=== PATIENT | female | born 1955 | race Caucasian/White ===

== ENCOUNTER 2016-08-17 20:33 | Emergency (ER) | payer OTHER ==
[2016-08-17 20:45] VITALS: BP 143/77; PULSE 55; TEMP 98; BMI 26.7
--- NOTE | 2016-08-17 21:08 | PDOC ---
History of Present Illness - General History Source: Patient Exam Limitations: No Limitations - History of Present Illness Initial Comments: 08/17/16 21:09 The patient is a 61 year old female, with a significant past medical history of HTN, HLD, hiatal hernia, GERD, anxiety and migraine, who presents to the emergency department with right ankle pain after a fall today. She states that she was walking down the stairs when she missed a step and hurt her ankle when the foot inverted. She describes her ankle pain as mild, without radiation or modifying factors. The patient was able to ambulate into the ED. She denies taking anything for the pain. The patient denies chest pain, shortness of breath, headache and dizziness. Allergies: None Past surgical history: None reported Social history: No alcohol, tobacco or drug use reported <Michael Olsen - Last Filed: 08/17/16 21:37> - General History Source: Patient Exam Limitations: No Limitations <Susan Centeno - Last Filed: 08/17/16 21:42> - General Chief Complaint: Injury Stated Complaint: right ankle injury s/p fall Time Seen by Provider: 08/17/16 20:36 Past History <Michael Olsen - Last Filed: 08/17/16 21:37> - Past Medical History GI Disorders: Yes (GERD, HIATAL HERNIA,diverticulitis) HTN: Yes Hypercholesterolemia: Yes Psychiatric Problems: Yes (anxiety) - Surgical History Abdominal Surgery: Yes (bowel resection s/p diverticulitis) - Immunization History TDAP Vaccination: Yes (2012) - Psycho/Social/Smoking Cessation Hx Anxiety: Yes Suicidal Ideation: No Smoking Status: No Smoking History: Never smoked Have you smoked in the past 12 months: No Number of Cigarettes Smoked Daily: 0 Information on smoking cessation initiated: No Hx Alcohol Use: No Drug/Substance Use Hx: No Substance Use Type: None <Susan Centeno - Last Filed: 08/17/16 21:42> - Past Medical History Allergies/Adverse Reactions: Allergies Allergy/AdvReac Type Severity Reaction Status Date / Time propoxyphene HCl AdvReac Difficulty Verified 08/17/16 20:35 [From Darvon] Breathing Home Medications: Ambulatory Orders Alprazolam [Xanax] 0.25 mg PO BID 01/11/12 Aspirin [ASA -] 81 mg PO HS 01/11/12 Gemfibrozil [Lopid -] 600 mg PO DAILY 01/11/12 Lansoprazole [Prevacid -] 30 mg PO DAILY 01/11/12 Lutein 6 mg PO DAILY 01/11/12 Propranolol HCl [Inderal -] 40 mg PO BID 01/11/12 Simvastatin [Zocor] 20 mg PO HS 01/11/12 Dapsone [Aczone] 60 gm TP BID 01/25/14 Estradiol [Vagifem] 10 mcg VG UTDICT 01/25/14 Lisinopril [Zestril] 2.5 mg PO DAILY 01/25/14 Naftifine HCl [Naftin] 60 gm TP UTDICT 01/25/14 Multivitamin [Poly-Vitamin] 1 each PO DAILY 08/17/16 Review of Systems - Review of Systems Able to Perform ROS?: Yes Comments:: 08/17/16 21:09 GENERAL/CONSTITUTIONAL: No: fever, chills, weakness, loss of appetite. HEAD, EYES, EARS, NOSE AND THROAT: No: change in vision, ear pain, discharge, sore throat, throat swelling. MUSCULOSKELET AL: No: back pain, neck pain, joint pain, muscle swelling or pain EXTREMITIES: +Right ankle pain. SKIN AND BREASTS: No: lesions, pallor, rash or easy bruising. NEUROLOGIC: No: headache, vertigo, paresthesias, weakness <Michael Olesn - Last Filed: 08/17/16 21:37> *Physical Exam - Vital Signs Last Vital Signs Temp Pulse Resp BP Pulse Ox 98 F 55 L 18 143/77 98 08/17/16 20:41 08/17/16 20:41 08/17/16 20:41 08/17/16 20:41 08/17/16 20:41 - Physical Exam Comments: 08/17/16 21:09 GENERAL: The patient is in no acute distress. HEAD: Normal with no signs of trauma. EXTREMITIES: Normal range of motion, no edema. No clubbing or cyanosis. No erythema, or tenderness, bruising or swelling. NEUROLOGICAL: Cranial nerves II through XII grossly intact. Normal speech. No focal neurological deficits. MUSCULOSKELETAL: Back non-tender to palpation, no CVA tenderness SKIN: Warm, Dry, normal turgor, no rashes or lesions noted. <Michael Olsen - Last Filed: 08/17/16 21:37> - Vital Signs Last Vital Signs Temp Pulse Resp BP Pulse Ox 98 F 55 L 18 143/77 98 08/17/16 20:41 08/17/16 20:41 08/17/16 20:41 08/17/16 20:41 08/17/16 20:41 <Susan Centeno - Last Filed: 08/17/16 21:42> ED Treatment Course - RADIOLOGY Radiograph Interpretation: 08/17/16 21:37 Right ankle x-ray Reviewed by: Dr. Trever Anderson Impression: No evidence of acute fracture or dislocation in the region of right ankle and right foot. <Michael Olsen - Last Filed: 08/17/16 21:37> Medical Decision Making - Medical Decision Making 08/17/16 21:08 A portion of this note was documented by scribe services under my direction. I have reviewed the details of the note, within reason, and agree with the documentation with the following case summary and management plan written by me. Nursing documentation reviewed and incorporated into medical decision making 08/17/16 21:38 This is a 61 yo F presenting to the ER with a complaint of right ankle pain PT states she tripped over a stair and inverted her ankle No additional trauma Pain has been all over the right leg No point tenderness on examination No swelling No bruising Pt has not taken any motrin or tylenol for pain DD: Ankle fracture, sprain Will do x ray pt refused pain medications Xray: no fracture or dislocation Will discharge to home Can katlyn wrap <Susan Centeno - Last Filed: 08/17/16 21:42> *DC/Admit/Observation/Transfer - Attestations Scribe Attestion: 08/17/16 21:10 Documentation prepared by Michael Olsen, acting as medical office clerk for Susan Centeno MD <Michael Olsen - Last Filed: 08/17/16 21:37> - Discharge Dispostion Admit: No <Susan Centeno - Last Filed: 08/17/16 21:42> Diagnosis at time of Disposition: Ankle pain, right Qualifiers: Chronicity: acute Qualified Code(s): M25.571 - Pain in right ankle and joints of right foot - Discharge Dispostion Disposition: HOME Condition at time of disposition: Stable - Patient Instructions Printed Discharge Instructions: DI for Ankle Pain Additional Instructions: Please apply ice as needed Please elevate Please wrap with an katlyn bandage Please return to the ER for any other concerns or complaints Please follow up with your primary care physician
== END 2016-08-17 21:57 | disposition home or self-care (01) ==
LOC: FER 20:33
DX: M25.571 Pain in right ankle and joints of right foot (principal); I10 Essential (primary) hypertension; E78.5 Hyperlipidemia, unspecified; K21.9 Gastro-esophageal reflux disease without esophagitis; F41.9 Anxiety disorder, unspecified; Z86.69 Personal history of other diseases of the nervous system and sense organs
CPT/HCPCS: 73610-TC-RT; 73630-TC-RT; 99281-25

== ENCOUNTER 2017-08-11 20:06 | Emergency (ER) | payer OTHER ==
[2017-08-11 20:25] VITALS: BP 157/80; PULSE 63; TEMP 99; BMI 27.1
--- NOTE | 2017-08-11 21:11 | PDOC ---
History of Present Illness - General History Source: Patient, Spouse Exam Limitations: No Limitations - History of Present Illness Initial Comments: The patient is a 62 year old female, accompanied with her , with a significant PMH of HTN, HLD, GERD, dry eye, Rosacea, and migraine headaches who presents to the emergency department complaining of right hand 4th finger swelling/bruising without trauma, since 6:30pm today. The patient reports standing in the kitchen and noticing her right hand 4th finger turning blue in color. The patient reports not being able to flex her finger, but denies any pain. She denies any other bruising and bleeding in mouth. Of note, she had her tooth extracted 10 days ago and finished a prescription of Zithromax. The patient also reports completing a course of ciprofloxacin several weeks ago. The patient reports a history of nerve issues throughout the right arm. The patient denies chest pain, shortness of breath, headache, and dizziness. Denies fevers, chills, nausea, vomiting, diarrhea, and constipation. Denies dysuria, frequency, urgency, and hematuria. Allergies: Adhesive (band-aid) Past surgical history: Breast reduction, , laparascopic removal of dermoid ovarian cyst (1994), abdominal hysterectomy (2005), colon resection for diverticular disease (2015). Social history: No reported cigarette, alcohol, or drug use. PCP: Dr. Edwardo Guajardo ([phone]). <Kayy Freed - Last Filed: 08/11/17 22:10> <Nina Falcon - Last Filed: 08/12/17 02:45> - General Chief Complaint: Pain Stated Complaint: RH 4TH FINGER SWELLING/BRUISING Time Seen by Provider: 08/11/17 20:14 Past History <Kayy Freed - Last Filed: 08/11/17 22:10> - Past Medical History COPD: No GI Disorders: Yes (GERD, HIATAL HERNIA,diverticulitis) HTN: Yes Hypercholesterolemia: Yes Psychiatric Problems: Yes (anxiety) Other medical history: DRY EYE, ROSACEA - Surgical History Abdominal Surgery: Yes (bowel resection s/p diverticulitis) - Immunization History TDAP Vaccination: Yes (2012) - Suicide/Smoking/Psychosocial Hx Smoking Status: No Smoking History: Never smoked Have you smoked in the past 12 months: No Number of Cigarettes Smoked Daily: 0 Hx Alcohol Use: No Drug/Substance Use Hx: No Substance Use Type: None <Nina Falcon - Last Filed: 08/12/17 02:45> - Past Medical History Allergies/Adverse Reactions: Allergies Allergy/AdvReac Type Severity Reaction Status Date / Time adhesive Allergy Verified 08/11/17 20:09 propoxyphene HCl AdvReac Difficulty Verified 08/17/16 20:35 [From Darvon] Breathing Home Medications: Ambulatory Orders Alprazolam [Xanax] 0.25 mg PO BID 01/11/12 Aspirin [ASA -] 81 mg PO HS 01/11/12 Gemfibrozil [Lopid -] 600 mg PO DAILY 01/11/12 Lansoprazole [Prevacid -] 30 mg PO DAILY 01/11/12 Lutein 6 mg PO DAILY 01/11/12 Simvastatin [Zocor] 20 mg PO HS 01/11/12 propRANOLol HCL [Inderal -] 40 mg PO BID 01/11/12 Dapsone [Aczone] 60 gm TP BID 01/25/14 Estradiol [Vagifem] 10 mcg VG UTDICT 01/25/14 Lisinopril [Zestril] 2.5 mg PO DAILY 01/25/14 Naftifine HCl [Naftin] 60 gm TP UTDICT 01/25/14 Multivitamin [Poly-Vitamin] 1 each PO DAILY 08/17/16 Lactobacillus Rhamnosus GG [Culturelle] 1 each PO BID 08/11/17 Sennosides/Docusate Sodium [Stool Softener-Laxative Tablet] 1 each PO WEEKLY 04/18 Review of Systems - Review of Systems Able to Perform ROS?: Yes Comments:: All systems are reviewed and negative except as noted in the HPI. <Kayy Freed - Last Filed: 08/11/17 22:10> *Physical Exam - Vital Signs Last Vital Signs Temp Pulse Resp BP Pulse Ox 99 F 63 16 157/80 99 08/11/17 20:20 08/11/17 20:20 08/11/17 20:20 08/11/17 20:20 08/11/17 20:20 - Physical Exam Comments: GENERAL: The patient is awake, alert, and fully oriented, in no acute distress. HEAD: Normal with no signs of trauma. EYES: Pupils equal, round and reactive to light, extraocular movements intact, sclera anicteric, conjunctiva clear. ENT: Ears normal, nares patent, oropharynx clear without exudates. Moist mucous membranes. NECK: Normal range of motion, supple without lymphadenopathy, JVD, or masses. LUNGS: Breath sounds equal, clear to auscultation bilaterally. No wheezes, and no crackles. HEART: Regular rate and rhythm, normal S1 and S2 without murmur, rub or gallop. ABDOMEN: Soft, nontender, normoactive bowel sounds. No guarding, no rebound. No masses. EXTREMITIES:(+)Palmar aspect of proximal and middle phalanx of right 4th finger. (+)Edematous and Ecchymotic without deformity. Non tender. (+)Palmar distal phalanx, non edematous, with good capillary refill. Finger warm. Sensory and motor function intact. Remainder of hand normal without edema, ecchymosis or deformity. speech, normal gait. PSYCH: Normal mood, normal affect. SKIN: Warm, Dry, normal turgor, no rashes or lesions noted. <Kayy Freed - Last Filed: 08/11/17 22:10> - Vital Signs Last Vital Signs Temp Pulse Resp BP Pulse Ox 99 F 63 16 157/80 99 08/11/17 20:20 08/11/17 20:20 08/11/17 20:20 08/11/17 20:20 08/11/17 20:20 <Nina Falcon - Last Filed: 08/12/17 02:45> ED Treatment Course - LABORATORY CBC & Chemistry Diagram: 08/11/17 21:40 08/11/17 21:40 - ADDITIONAL ORDERS Additional order review: Laboratory Results 08/11/17 21:40 PT with INR 12.1 INR 1.08 08/11/17 21:40 RBC 4.91 MCV 85.1 MCHC 35.6 RDW 12.9 MPV 7.0 L Neutrophils % 60.8 Lymphocytes % 32.4 Monocytes % 4.2 Eosinophils % 1.9 Basophils % 0.7 <Kayy Freed - Last Filed: 08/11/17 22:10> - LABORATORY CBC & Chemistry Diagram: 08/11/17 21:40 08/11/17 21:40 <Nina Falcon - Last Filed: 08/12/17 02:45> Medical Decision Making - Medical Decision Making Documentation has been prepared under my direction and personally reviewed by me in its entirety. I attest that this documented accurately reflects all work, treatment, procedures and medical decision making performed by me. As noted above, this 62-year-old woman presents with apparent sudden onset of edema/ecchymosis of the right fourth finger this evening. Ecchymosis is contained to the palmar aspect of the proximal finger (distal phalanx is not ecchymotic). Patient cannot recall any specific trauma to the area. No other recent history of easy bruising/bleeding. Other than 81 mg of aspirin daily, which the patient has taken for approximately 10 years, patient is taking no anticoagulation. Exam as noted. CBC/INR/comprehensive chemistry profile performed to evaluate for acute abnormality. There is no evidence of thrombocytopenia/coagulopathy or renal/ hepatic/electrolyte abnormalities. Right hand x-ray shows no evidence of fracture/ dislocation/masses. Results discussed with the patient. Since the area is mildly edematous as well as ecchymotic, occult trauma likely is origin (for example, disruption of small subcutaneous venule). Patient should elevate the finger as much as possible as well as apply cold to the area for the next few days. She should follow-up with her general doctor within the next several days. Of course, if the patient notices other areas of bruising or bleeding, she should follow-up sooner. If the bruising/bleeding is severe, she should return to the emergency room. <Nina Falcon - Last Filed: 08/12/17 02:45> *DC/Admit/Observation/Transfer - Attestations Scribe Attestion: Documentation prepared by Kayy Freed, acting as medical instrument technician for Nina Falcon MD. <Kayy Freed - Last Filed: 08/11/17 22:10> <Nina Falcon - Last Filed: 08/12/17 02:45> Diagnosis at time of Disposition: Ecchymoses, spontaneous - Discharge Dispostion Disposition: HOME Condition at time of disposition: Stable - Referrals Referrals: Edwardo Guajardo [Primary Care Provider] - 1 week - Patient Instructions Printed Discharge Instructions: DI for Contusion Additional Instructions: Elevate/ice to right fourth finger the next 48 hours Continue medications as prescribed Follow-up with your doctor within the next 5-7 days Return to ER if you have worsening pain/swelling/bruising or notice other areas of bruising without known trauma - Post Discharge Activity
[2017-08-11 21:54] LABS: BASO % 0.7 % (0-2.0); EOS % 1.9 % (0-4.5); HEMATOCRIT 41.8 % (32.4-45.2); HEMOGLOBIN 14.9 GM/dl (10.7-15.3); LYMPH % 32.4 % (8-40); MCH 30.3 pg (25.7-33.7); MCHC 35.6 g/dl (32.0-36.0); MEAN CELL VOLUME 85.1 fl (80-96); MONO % 4.2 % (3.8-10.2); NEUT % 60.8 % (42.8-82.8); PLATELET COUNT 304 K/MM3 (134-434); RBC 4.91 M/mm3 (3.60-5.2); RDW 12.9 % (11.6-15.6); WHITE BLOOD COUNT 8.8 K/mm3 (4.0-10.8)
[2017-08-11 22:05] LABS: INR 1.08 (0.82-1.09); PROTHROMBIN TIME (PATIENT) 12.1 SEC (10.2-13.0)
[2017-08-11 22:10] LABS: ALBUMIN 4.2 g/dl (3.5-5.0); ALK PHOS 63 U/L (32-92); ANION GAP 4 (8-16); BLOOD UREA NITROGEN 18 mg/dl (7-18); CALCIUM 8.7 mg/dl (8.4-10.2); CHLORIDE 104 mmol/L (98-107); CO2 31 mmol/L (22-28); CREATININE 0.8 mg/dl (0.6-1.3); GLUCOSE,RANDOM 115 mg/dl (74-106); SGOT/AST 19 U/L (10-42); SGPT/ALT 21 U/L (10-40); SODIUM 139 mmol/L (136-145); TOT PROT 7.3 g/dl (6.4-8.3)
== END 2017-08-11 22:31 | disposition home or self-care (01) ==
LOC: FER 20:06
DX: E78.5 Hyperlipidemia, unspecified (principal); K21.9 Gastro-esophageal reflux disease without esophagitis; F41.9 Anxiety disorder, unspecified
CPT/HCPCS: 36415; 73130-TC-RT-FY; 80053; 85025; 85610; 99281-25